=== PATIENT | male | born 1985 | race Two or more races ===

== ENCOUNTER 2016-05-29 18:17 | Emergency (ER) | payer SELFPAY ==
[~2016-05-29] VITALS: Ht 175.3 cm; Wt 74.8 kg
[2016-05-29 19:08] VITALS: BP 122/69
== END 2016-05-29 19:14 | disposition home or self-care (01) ==
LOC: ER 18:19 → EDBD 18:19 → ER 19:14
DX: Z00.8 Encounter for other general examination (principal); M79.89 Other specified soft tissue disorders